=== PATIENT | female | born 1990 | race African-American/Black ===

== ENCOUNTER 2018-01-02 17:30 | Inpatient (IN) ==
[2018-01-02] MEDS ORDERED: VANCOMYCIN INJ 1,500 MG in SODIUM CHLORIDE 0.9% 250 ML IV STA (21:43)
[2018-01-02] MEDS ORDERED: ACETAMINOPHEN 500 MG TABLET ONE (22:27)
[2018-01-02] MEDS ORDERED: ACETAMINOPHEN 500 MG TABLET PO STA (22:28)
[2018-01-02] MEDS ORDERED: SODIUM CHLORIDE 0.9% 1,000 ML IV STA (22:41)
[2018-01-02] MEDS ORDERED: MORPHINE 2 MG/1 ML SYRINGE IV STA (22:42)
[2018-01-02] MEDS ORDERED: ONDANSETRON 4 MG/2 ML VIAL IV STA (22:43)
[2018-01-02 22:47] LABS: Basophils % 0.2 % (0.0-0.8); Eosinophils # 0.3 10*3/uL (0.0-0.87); Eosinophils % 1.5 % (0.00-10.9); Hematocrit 41.2 VOL% (35.7-47.0); Hemoglobin 13.3 GM/DL (12.0-16.0); Immature Granulocytes % 0.5 %; Immature Granulocytes Absolute 0.09 #; Lymphocytes # 3.5 10*3/uL (1.4-4.0); Lymphocytes % 20.2 % (21.3-54.2); Mean Corpuscular HGB Conc 32.3 GM/DL (32-36); Mean Corpuscular Hemoglobin 29 PG (27-34); Mean Corpuscular Volume 90.4 FL (87-102); Mean Platelet Volume 10.6 FL (9.6-12.0); Monocytes # 1.2 10*3/uL (0.11-0.8); Monocytes % 6.8 % (1.7-12.7); Neutrophils # 12.1 10*3/uL (1.4-7.4); Neutrophils % 70.8 % (38.7-73.9); Platelet Count 259 T/CUMM (130-400); Red Blood Count 4.56 MC/CUMM (3.8-5.5); Red Cell Distribution Width 13.2 % (9.3-17.3); White Blood Count 17.2 T/CUMM (4-12)
[2018-01-02 23:11] LABS: Albumin 3.7 G/DL (3.4-5.0); Bilirubin,Total 0.9 MG/DL (0.2-1.0); Calcium 9.3 MG/DL (8.5-10.1); Osmolality,Calculated 277.5 MOS/KG (273-304); Potassium 3.6 MMOL/L (3.5-5.1); Total Protein 8.4 G/DL (6.4-8.3)
[2018-01-03] MEDS ORDERED: MORPHINE 2 MG/1 ML SYRINGE ONE (00:11)
[2018-01-03] MEDS ORDERED: ONDANSETRON 4 MG/2 ML VIAL ONE (00:11)
[2018-01-03] MEDS ORDERED: VANCOMYCIN INJ 1,500 MG in SODIUM CHLORIDE 0.9% 500 ML IV ONE (00:30)
[2018-01-03 06:37] LABS: Basophils % 0.3 % (0.0-0.8); Eosinophils # 0.3 10*3/uL (0.0-0.87); Eosinophils % 2.1 % (0.00-10.9); Hematocrit 33.2 VOL% (35.7-47.0); Hemoglobin 11.2 GM/DL (12.0-16.0); Immature Granulocytes % 0.5 %; Immature Granulocytes Absolute 0.07 #; Lymphocytes # 3.1 10*3/uL (1.4-4.0); Lymphocytes % 21.4 % (21.3-54.2); Mean Corpuscular HGB Conc 33.7 GM/DL (32-36); Mean Corpuscular Hemoglobin 30 PG (27-34); Mean Corpuscular Volume 89.2 FL (87-102); Mean Platelet Volume 9.8 FL (9.6-12.0); Monocytes # 1.2 10*3/uL (0.11-0.8); Monocytes % 7.9 % (1.7-12.7); Neutrophils # 9.9 10*3/uL (1.4-7.4); Neutrophils % 67.8 % (38.7-73.9); Platelet Count 336 T/CUMM (130-400); Red Blood Count 3.72 MC/CUMM (3.8-5.5); Red Cell Distribution Width 13.2 % (9.3-17.3); White Blood Count 14.6 T/CUMM (4-12)
[2018-01-03] MEDS: MORPHINE 2 MG/1 ML SYRINGE IV PRN ×3 (06:45→21:14)
[2018-01-03] MEDS: ACETAMINOPHEN 325 MG TABLET PO PRN ×2 (09:28→17:03)
[2018-01-03] MEDS: PANTOPRAZOLE 40 MG TABLET PO SCH (09:29)
[2018-01-03] MEDS: VANCOMYCIN INJ 1,500 MG in SODIUM CHLORIDE 0.9% 500 ML IV SCH ×2 (12:15→21:06)
[2018-01-04] MEDS: VANCOMYCIN INJ 1,500 MG in SODIUM CHLORIDE 0.9% 500 ML IV SCH ×3 (03:16→21:06)
[2018-01-04] MEDS: MORPHINE 2 MG/1 ML SYRINGE IV PRN ×3 (03:21→21:05)
[2018-01-04] MEDS ORDERED: LIDOCAINE 2%/EPI 20 ML VIAL ONE (06:34)
[2018-01-04] MEDS ORDERED: MUPIROCIN 2% OINT 22 GM TUBE TOP ONE (06:34)
[2018-01-04 06:47] LABS: Basophils % 0.3 % (0.0-0.8); Eosinophils # 0.3 10*3/uL (0.0-0.87); Eosinophils % 2.7 % (0.00-10.9); Hematocrit 33.6 VOL% (35.7-47.0); Hemoglobin 10.9 GM/DL (12.0-16.0); Immature Granulocytes % 0.5 %; Immature Granulocytes Absolute 0.06 #; Lymphocytes # 2.5 10*3/uL (1.4-4.0); Lymphocytes % 20.6 % (21.3-54.2); Mean Corpuscular HGB Conc 32.4 GM/DL (32-36); Mean Corpuscular Hemoglobin 30 PG (27-34); Mean Corpuscular Volume 91.6 FL (87-102); Mean Platelet Volume 9.7 FL (9.6-12.0); Monocytes # 0.8 10*3/uL (0.11-0.8); Monocytes % 6.6 % (1.7-12.7); Neutrophils # 8.3 10*3/uL (1.4-7.4); Neutrophils % 69.3 % (38.7-73.9); Platelet Count 332 T/CUMM (130-400); Red Blood Count 3.67 MC/CUMM (3.8-5.5); Red Cell Distribution Width 13.4 % (9.3-17.3)
[2018-01-04] MEDS: LACTATED RINGERS 1,000 ML IV SCH (06:58)
[2018-01-04 07:11] LABS: Giant Platelets Few; Hypochromasia 1+; Ovalocytes Slight; Platelet Estimate Adequate
[2018-01-04] MEDS ORDERED: BACITRACIN OPH OINT 3.5 GM TUBE ONE (07:13)
[2018-01-04 07:18] LABS: Calcium 8.1 MG/DL (8.5-10.1); Osmolality,Calculated 279.3 MOS/KG (273-304); Potassium 4.1 MMOL/L (3.5-5.1)
[2018-01-04] MEDS: HYDROmorphone 2 MG/1 ML VIAL IV PRN ×3 (07:42→07:52)
[2018-01-04] MEDS: ONDANSETRON 4 MG/2 ML VIAL IV PRN ×2 (07:43→16:30)
[2018-01-04] MEDS ORDERED: HYDROmorphone 2 MG/1 ML VIAL ONE (07:44)
[2018-01-04] MEDS ORDERED: ONDANSETRON 4 MG/2 ML VIAL ONE (07:44)
[2018-01-04] MEDS ORDERED: ONDANSETRON 4 MG/2 ML VIAL IV PRN (07:51)
[2018-01-04] MEDS ORDERED: MIDAZOLAM 2 MG/2 ML VIAL ONE (07:53)
[2018-01-04] MEDS ORDERED: fentaNYL 100 MCG/2 ML VIAL ONE ×2 (07:53→13:07)
[2018-01-04] MEDS ORDERED: PROPOFOL 200 MG/20 ML VIAL IV ONE (07:53)
[2018-01-04] MEDS ORDERED: ROCURONIUM 100 MG/10 ML VIAL IV ONE (07:54)
[2018-01-04] MEDS ORDERED: SUCCINYLCHOLINE 200 MG/10 ML VIAL ONE (07:54)
[2018-01-04] MEDS ORDERED: SEVOFLURANE 1 UNIT/15 MINUTE INH ONE (07:54)
[2018-01-04] MEDS: PANTOPRAZOLE 40 MG TABLET PO SCH (09:09)
[2018-01-05] MEDS: ACETAMINOPHEN 325 MG TABLET PO PRN (03:29)
[2018-01-05] MEDS: VANCOMYCIN INJ 1,500 MG in SODIUM CHLORIDE 0.9% 500 ML IV SCH ×3 (03:29→20:39)
[2018-01-05 05:32] LABS: Basophils % 0.2 % (0.0-0.8); Eosinophils # 0.4 10*3/uL (0.0-0.87); Eosinophils % 3.7 % (0.00-10.9); Hematocrit 32.6 VOL% (35.7-47.0); Hemoglobin 10.4 GM/DL (12.0-16.0); Immature Granulocytes % 0.6 %; Immature Granulocytes Absolute 0.06 #; Lymphocytes # 2.2 10*3/uL (1.4-4.0); Lymphocytes % 20.9 % (21.3-54.2); Mean Corpuscular HGB Conc 31.9 GM/DL (32-36); Mean Corpuscular Hemoglobin 29 PG (27-34); Mean Corpuscular Volume 91.8 FL (87-102); Mean Platelet Volume 9.8 FL (9.6-12.0); Monocytes # 0.8 10*3/uL (0.11-0.8); Monocytes % 7.3 % (1.7-12.7); Neutrophils # 7.2 10*3/uL (1.4-7.4); Neutrophils % 67.3 % (38.7-73.9); Platelet Count 316 T/CUMM (130-400); Red Blood Count 3.55 MC/CUMM (3.8-5.5); Red Cell Distribution Width 13.2 % (9.3-17.3); White Blood Count 10.7 T/CUMM (4-12)
[2018-01-05 06:04] LABS: Calcium 8.1 MG/DL (8.5-10.1); Osmolality,Calculated 281.1 MOS/KG (273-304); Potassium 4.2 MMOL/L (3.5-5.1)
[2018-01-05] MEDS: LACTATED RINGERS 1,000 ML IV SCH (06:06)
[2018-01-05] MEDS: PANTOPRAZOLE 40 MG TABLET PO SCH (08:22)
[2018-01-05] MEDS: MORPHINE 2 MG/1 ML SYRINGE IV PRN (18:10)
[2018-01-06] MEDS: VANCOMYCIN INJ 1,500 MG in SODIUM CHLORIDE 0.9% 500 ML IV SCH ×2 (05:09→13:30)
[2018-01-06 06:52] LABS: Basophils % 0.3 % (0.0-0.8); Eosinophils # 0.5 10*3/uL (0.0-0.87); Eosinophils % 4.7 % (0.00-10.9); Hematocrit 31.9 VOL% (35.7-47.0); Hemoglobin 10.4 GM/DL (12.0-16.0); Immature Granulocytes % 0.3 %; Immature Granulocytes Absolute 0.03 #; Lymphocytes # 1.8 10*3/uL (1.4-4.0); Lymphocytes % 18.3 % (21.3-54.2); Mean Corpuscular HGB Conc 32.6 GM/DL (32-36); Mean Corpuscular Hemoglobin 29 PG (27-34); Mean Corpuscular Volume 89.6 FL (87-102); Mean Platelet Volume 9.8 FL (9.6-12.0); Monocytes # 0.7 10*3/uL (0.11-0.8); Monocytes % 7.2 % (1.7-12.7); Neutrophils # 6.8 10*3/uL (1.4-7.4); Neutrophils % 69.2 % (38.7-73.9); Platelet Count 317 T/CUMM (130-400); Red Blood Count 3.56 MC/CUMM (3.8-5.5); Red Cell Distribution Width 12.9 % (9.3-17.3); White Blood Count 9.8 T/CUMM (4-12)
[2018-01-06 07:31] LABS: Albumin 2.8 G/DL (3.4-5.0); Bilirubin,Total 0.4 MG/DL (0.2-1.0); Calcium 8.4 MG/DL (8.5-10.1); Potassium 4.2 MMOL/L (3.5-5.1); Total Protein 6.5 G/DL (6.4-8.3)
[2018-01-06] MEDS: PANTOPRAZOLE 40 MG TABLET PO SCH (08:41)
[2018-01-06] MEDS: LACTATED RINGERS 1,000 ML IV SCH (08:42)
[2018-01-06] MEDS ORDERED: BACITRACIN OPH OINT 3.5 GM TUBE ONE (11:44)
[2018-01-06 16:04] VITALS: BP 120/79
== END 2018-01-06 16:28 | disposition home or self-care (01) | DRG 580 ==
LOC: N.ED 17:30 → N.EDINP 01-03 01:27 → N.5E 01-03 02:03
PROVIDERS: ADMIT Internal Medicine; ATTEND Internal Medicine